=== PATIENT | female | born 1940 | race Caucasian/White ===

== ENCOUNTER 2020-08-03 05:48 | Day surgery (SDC) | payer MEDICARE ==
[2020-08-02 10:37] VITALS: BP 118/66
[2020-08-03] VITALS (10 sets, daily range): BP systolic 126–142; BP diastolic 64–85
[~2020-08-03] VITALS: Ht 162.6 cm; Wt 68.8 kg
[~2020-08-03 05:48] MED LIST: AEC81 PO; ALBU8.5H8 IH; DILT30TA3 PO; LEVO100C4 PO; LOSA100T58 PO; PROP10TA10 PO; QVAR IH; UMEC1DIS IH
[2020-08-03] MEDS: CEFAZOLIN SODIUM 1 GM VIAL IVP SCH ×2 (06:00→09:00)
[2020-08-03] MEDS ORDERED: LACTATED RINGERS 1000ML 1,000 ML IV ONE (06:25)
[2020-08-03] MEDS ORDERED: LIDOCAINE HCL-MPF 0.5% 50ML VIAL IJ ONE (07:17)
[2020-08-03] MEDS ORDERED: MIDAZOLAM HCL 1 MG/ML 2ML VIAL ONE (07:21)
[2020-08-03] MEDS ORDERED: FENTANYL CITRATE PF 50 MCG/1 ML 2ML VIAL ONE (07:22)
[2020-08-03] MEDS ORDERED: KETOROLAC TROMETHAMINE 10 MG TABLET PO SCH (10:23)
== END 2020-08-03 10:45 | disposition home or self-care (01) ==
LOC: DAH 05:48
PROVIDERS: ATTEND Neurological Surgery
DX: G56.01 Carpal tunnel syndrome, right upper limb (principal); J44.9 Chronic obstructive pulmonary disease, unspecified; I10 Essential (primary) hypertension; M19.90 Unspecified osteoarthritis, unspecified site; Z79.899 Other long term (current) drug therapy; Z20.828 Contact with and (suspected) exposure to other viral communicable diseases
CPT/HCPCS: 64721; 93005; A4215; A4221; A4222; A4223; A4663; C9803; J0690; J2250; J3010; J3490; J7120; U0003